=== PATIENT | male | born 1965 | race Caucasian/White ===

== ENCOUNTER 2018-02-17 11:13 | Inpatient (IN) ==
[2018-02-13 11:44] LABS: Appearance,Urine CLEAR; Bilirubin,Urine NEG (NEG); Color,Urine YELLOW; Glucose,Urine (UA) NEGATIVE (NEG); Leukocyte Esterase,Urine NEG /uL (NEG); Protein,Urine NEG (NEG); Specific Gravity,Urine 1.011 (1.000-1.035); Urine Blood NEG mg/dL (<0.03); Urobilinogen,Urine NEG (NEG)
[2018-02-13 12:47] LABS: Blood Urea Nitrogen 16 mg/dl (6-20)
[2018-02-13 12:53] LABS: Basophils # (Auto) 0 K/mcL (0.0-0.3); Basophils % (Auto) 0.3 % (0.0-2.0); Eosinophils # (Auto) 0.1 K/mcL (0.0-0.7); Eosinophils % (Auto) 2.7 % (0.0-7.0); Granulocytes % (Auto) 61.2 % (38.0-78.0); Lymphocytes # (Auto) 1.2 K/mcL (1.5-4.8); Lymphocytes % (Auto) 29.1 % (15.5-49.0); Mean Corpuscular HGB Conc 35.3 g/dL (31.0-36.0); Mean Corpuscular Hemoglobin 32.4 pg (26.0-34.0); Monocytes # (Auto) 0.3 K/mcL (0.1-0.9); Monocytes % (Auto) 6.7 % (1.0-12.0); Platelet Count 226 K/mcL (140-440); Red Cell Distribution Width 12.7 % (11.5-14.5)
[~2018-02-17 11:13] MED LIST: CELECOXIB 200 MG CAPSULE PO SCH; GABAPENTIN 300 MG CAPSULE PO SCH; ceFAZolin 1 GM VIAL IV SCH; oxyCODONE 10 MG TAB.ER.12H PO SCH
[2018-02-17] MEDS ORDERED: DEXAMETHASONE 10 MG/ML VIAL IV ONE (16:05)
[2018-02-17] MEDS ORDERED: LIDOCAINE HCL/PF 100 MG/5 ML SYRINGE IV ONE (16:05)
[2018-02-17] MEDS ORDERED: TRANEXAMIC ACID 1,000 MG/10 ML VIAL IV ONE (16:05)
[2018-02-17] MEDS ORDERED: ePHEDrine 50 MG/ML AMPUL IV ONE (16:05)
[2018-02-17] MEDS ORDERED: PROPOFOL 200 MG/20 ML VIAL IV ONE (16:05)
[2018-02-17] MEDS ORDERED: MIDAZOLAM 5 MG/5 ML VIAL IV ONE (16:05)
[2018-02-17] MEDS ORDERED: fentaNYL 250 MCG/5 ML VIAL IV ONE (16:05)
[2018-02-17] MEDS ORDERED: SUCCINYLCHOLINE 20 MG/ML ML IV ONE (16:05)
[2018-02-17] MEDS ORDERED: ONDANSETRON 4 MG/2 ML VIAL IV ONE (16:05)
[2018-02-17] MEDS ORDERED: ONDANSETRON 4 MG/2 ML VIAL IV PRN (17:22)
[2018-02-17] MEDS ORDERED: KETOROLAC 30 MG/ML VIAL IV PRN (17:22)
[2018-02-17] MEDS ORDERED: diphenhydrAMINE 50 MG/ML VIAL IV PRN (17:22)
[2018-02-17] MEDS ORDERED: METHOCARBAMOL 1,000 MG/10 ML VIAL IV PRN (17:22)
[2018-02-17] MEDS ORDERED: NALOXONE HCL 0.4 MG/ML VIAL IV PRN (17:22)
[2018-02-17] MEDS ORDERED: PROMETHAZINE 25 MG/ML VIAL IV PRN (17:22)
[2018-02-17] MEDS ORDERED: ATROPINE SULFATE 0.4 MG/ML VIAL IV PRN (17:22)
[2018-02-17] MEDS ORDERED: MEPERIDINE 25 MG/ML SYRINGE IV PRN (17:22)
[2018-02-17] MEDS ORDERED: METOPROLOL TARTRATE 5 MG/5 ML VIAL IV PRN (17:22)
[2018-02-17] MEDS ORDERED: ACETAMINOPHEN 1,000 MG/100 ML BOTTLE IV ONE (17:22)
[2018-02-17] MEDS ORDERED: IPRATROPIUM/ALBUTEROL 3 ML AMPUL.NEB NEB PRN (17:22)
[2018-02-17] MEDS ORDERED: FLUMAZENIL 0.1 MG/ML ML IV PRN (17:22)
[2018-02-17] MEDS ORDERED: ePHEDrine 50 MG/ML AMPUL IV PRN (17:22)
[2018-02-17] MEDS ORDERED: LACTATED RINGERS 1,000 ML IV SCH (17:30)
[2018-02-17] MEDS ORDERED: POLYETHYLENE GLYCOL 3350 17 GM PACKET PO PRN (17:32)
[2018-02-17] MEDS ORDERED: FLEETS ADULT ENEMA PR PRN (17:32)
[2018-02-17] MEDS ORDERED: TRANEXAMIC ACID 1,000 MG/10 ML VIAL IV SCH (17:32)
[2018-02-17] MEDS ORDERED: BISACODYL 10 MG SUPP.RECT PR PRN (17:32)
[2018-02-17] MEDS ORDERED: MAGNESIUM HYDROXIDE 30 ML ORAL.SUSP PO PRN (17:32)
[2018-02-17] MEDS ORDERED: BENZOCAINE/MENTHOL 1 LOZENGE PO PRN (17:32)
--- NOTE | 2018-02-17 17:32 | Brief Operative Note ---
Date of procedure: 02/17/18 Pre-op diagnosis: R shoulder severe OA Post-op diagnosis: same Procedure: 1) Right total shoulder arthroplasty 2) Right bicep tenodesis Grafts/Implants: Yes (Depuy CAP 48x21, 48 anchor peg glenoid) Anesthesia: GETA Findings: severe arthritis Complications: none Surgeon: Brennen Drummond Scallop Binder: Rk Perez Estimated blood loss (cc): 200 Specimens Removed/Pathology: none sent Condition: stable Disposition: PACU
[2018-02-17] MEDS ORDERED: IBUPROFEN 800 MG TABLET PO PRN (17:38)
[2018-02-17] MEDS ORDERED: BUPIVACAINE PF 0.5% 30 ML VIAL IRR ONE (17:50)
[2018-02-17] MEDS: fentaNYL 100 MCG/2 ML VIAL IV PRN ×3 (18:13→18:37)
[2018-02-17] MEDS: HYDROmorphone 2 MG/ML VIAL IV PRN ×2 (18:26→18:47)
[2018-02-17] MEDS: 0.9 % SODIUM CHLORIDE 1,000 ML IV SCH (19:00)
[2018-02-17] MEDS ORDERED: SENNOSIDES 1 TABLET PO SCH (21:00)
[2018-02-17] MEDS: DOCUSATE SODIUM 100 MG CAPSULE PO SCH (21:55)
[2018-02-17] MEDS: GABAPENTIN 300 MG CAPSULE PO SCH (21:55)
[2018-02-17] MEDS: HYDROCODONE/APAP 7.5/325MG TABLET PO PRN (21:55)
[2018-02-17] MEDS: 0.9 % SODIUM CHLORIDE 10 ML SYRINGE IV SCH (22:09)
[2018-02-17] MEDS: ceFAZolin 1 GM VIAL IV SCH (23:26)
[2018-02-18] MEDS: KETOROLAC 30 MG/ML VIAL IV PRN ×2 (02:45→09:23)
[2018-02-18] MEDS: ONDANSETRON 4 MG/2 ML VIAL IV PRN ×3 (02:45→11:23)
[2018-02-18] MEDS: HYDROCODONE/APAP 7.5/325MG TABLET PO PRN (04:20)
[2018-02-18] MEDS: 0.9 % SODIUM CHLORIDE 10 ML SYRINGE IV SCH (05:28)
[2018-02-18] MEDS: 0.9 % SODIUM CHLORIDE 1,000 ML IV SCH (05:29)
--- NOTE | 2018-02-18 06:07 | XRay Report ---
CLINICAL INFORMATION: Reason for Exam:Post-OP Total Shoulder COMPARISON: None. FINDINGS: Shoulder prostheses is anatomically aligned. No osseous abnormality. Soft tissue swelling - as expected IMPRESSION: Negative Interpreted and Authenticated by: Sarbjit Billings 02/18/18
[2018-02-18] MEDS: ceFAZolin 1 GM VIAL IV SCH (07:14)
--- NOTE | 2018-02-18 07:31 | Discharge Summary ---
Ortho Discharge - TSA - Patient Instructions Diet: Regular Diet Activity: non weight bearing Total Shoulder Protocol: Leave immobilizer in place except for bathing and ROM. Abduction pillow. Continue to wear sling until seen by physician. Codman Pendulum : These exercises use momentum produced by your body to move your shoulder joint. Bend your knees and shift your weight to your front leg, then back, allowing your arm to swing in the same directions. Using the same technique, alternately shift your weight between your right and left legs, allowing your arm to swing from side to side. These exercises are also performed in counterclockwise and clockwise circular motions. Typically these exercises are performed several times per day, for a set number repetitions or minutes, such as 20 times in a row or 5 minutes at a time. Dressing Care: May shower in 2 days, Aquacel Ag - leave on for 5 days - Follow Up Plan Follow Up Appointments: Brennen Drummond MD [Physician] - 03/02/18 10:40 am Disposition: Home, Self-Care Prognosis: Good Rehab Potential: Good - Orders For Discharge Prescriptions: Hydrocodone/APAP 7.5/325Mg [[place] 7.5-325Mg] 1 - 2 tab PO Q4HP PRN #90 tab PRN Reason: Pain Ondansetron HCl [Zofran] 4 mg PO Q4-6H PRN #30 tab PRN Reason: Nausea And Vomiting Additional Discharge Orders: Physical Therapy at Discharge - TSA Location: Determined By Patient Brace/Splint Location: Determined By Patient
[2018-02-18] MEDS: GABAPENTIN 300 MG CAPSULE PO SCH (09:13)
[2018-02-18] MEDS: DOCUSATE SODIUM 100 MG CAPSULE PO SCH (09:13)
--- NOTE | 2018-02-18 10:49 | Operative Note ---
DATE OF OPERATION: 02/17/2018 PREOPERATIVE DIAGNOSIS: Right shoulder severe osteoarthritis. POSTOPERATIVE DIAGNOSIS: Right shoulder severe osteoarthritis. PROCEDURE PERFORMED: 1. Right total shoulder arthroplasty using a DePuy Cap 48 x 21 and a 48 [place] Peg Glenoid. 2. Right soft tissue biceps tenodesis. SURGEON: Brennen Drummond MD. STEEL MANAGER: Donta Perez PA-C. ANESTHESIA: General. DRAINS: None. SPECIMENS: None. COMPLICATIONS: None. POSTOPERATIVE CONDITION: Stable. BLOOD LOSS: 200 mL. INDICATIONS FOR SURGERY: This is a 52-year-old male who has had longstanding worsening right shoulder pain. Radiographs showed severe [id number] osteoarthritis with large osteophyte formation. FINDINGS AT SURGERY: As above. Post implantation showed good component position and stability. PROCEDURE IN DETAIL: The patient had been seen preoperatively. Informed consent had been obtained after discussion of risks and benefits of surgery. Risks including, but not limited to, bleeding; infection, possibly requiring implant removal and prolonged IV antibiotics; injury to nerves, blood vessels, other surrounding structures; anesthetic risks; incomplete or no resolution of symptoms; stiffness; pain; weakness; possibility of dislocation; possibility of needing further revision surgery. He understood these risks and wished to proceed. Correct operative site was marked and then patient was taken to the operating room. General anesthesia induced. He was carefully positioned in the beach chair position and pressure points carefully padded. Right shoulder and upper extremity were then carefully prepped and draped in normal sterile fashion, and a time-out was performed verifying patient name, operative site, and plan. All skin surfaces were covered with Ioban and then a standard deltopectoral incision was made with scalpel through skin and subcutaneous tissue. We obtained hemostasis with Bovie cautery and then irrigated Irrisept. Blunt dissection was taken down on the cephalic vein which was dissected lateral. We went ahead and bluntly developed the subdeltoid space and then biceps was identified. This was unroofed. There was a large joint effusion that egressed. We amputated the biceps and then a large osteotome used to perform a lesser tuberosity osteotomy. A traction stitch was used and then the humerus was dislocated. Capsule was released around inferiorly and then osteophytes removed with the osteotome. We then subluxed the humerus posteriorly. Labrum was removed circumferentially. We also released capsule circumferentially, carefully staying directly on the inferior glenoid around the inferior portion. Once we had adequate glenoid exposure, we did note that he had a significant retroversion. We placed our guide pin with a little more anteversion and then reamed more of the anterior bone until we had a concentric glenoid. We then reamed our central peg. We then placed the peripheral peg drill guide and drilled our three peripheral peg holes. The 48 [place] Peg Glenoid was opened. DBX bone graft was placed in the flutes. Cement was mixed. We irrigated Irrisept in the joint, after a minute pulse lavaged and then injected cement into the three peripheral holes and pressurized. We then impacted the glenoid component until it was fully seated. We waited until cement had fully hardened and then resubluxed the humeral head and dislocated anteriorly. We then used the [address] our guide pin. We reamed with a 48 x 18 initially, and this did not quite go down to his anatomic neck, so we went up to a 21. This did reach. We removed peripheral bone outside of the reamer and then checked with the trial. This seated fully. We used the keel punch. We irrigated Irrisept. The implant was opened and after a minute we pulse lavaged with saline and then impacted the implant until it was fully seated. We reduced it. It subluxed 50% posteriorly, so we went ahead and made drill holes in the bicipital groove. A #2 FiberWire was used around the lesser tuberosity fragment and to repair our subscapularis down in a [id number] stitch. We placed several more [id number] in the rotator interval and then also did a tenodesis stitch with a #2 FiberWire. Once this was completed, we did another Irrisept irrigation, after a minute another pulse lavage, and a running #1 Vicryl was used to close the deltopectoral interval. We did note that the vein got lacerated at some point with retraction so we did have to coagulate it. Final Irrisept was done, final pulse lavage, and then 2-0 Monocryl for subcutaneous and michaela for skin. Xeroform sterile dressing was applied. Abductor mobilizer was placed, and the patient was awakened, extubated, and transferred to recovery in stable condition. [email or web address] Job ID: [id number] Doc ID: [id number] Brennen Drummond MD
[2018-02-20] MEDS ORDERED: ETANERCEPT 50 MG SQ SCH (17:38)
== END 2018-02-18 12:00 | disposition home or self-care (01) | DRG 483 ==
LOC: MEDSUR 11:13
PROVIDERS: ADMIT Orthopaedic Surgery; ATTEND Orthopaedic Surgery